=== PATIENT | female | born 1995 | race Asian ===

== ENCOUNTER 2021-05-21 09:55 | Emergency (ER) | payer BC ==
[~2021-05-21] VITALS: Ht 170.2 cm; Wt 63.0 kg
--- NOTE | 2021-05-21 09:57 | NUR ---
AAOX3, BIBRA 78 c/o hives upper torso and SOB [employer], given 0.5 EPI given in the field, BS=97MG/DL, took benadryl 50mg at home to no relief. Sinus Tach on case monitor at [id number]. ER md made aware. Awaiting md for eval.
--- NOTE | 2021-05-21 10:09 | NUR ---
DR DURAN AT THE BEDSIDE
--- NOTE | 2021-05-21 10:10 | NUR ---
[facility]) [phone] NOTIFIED PER PT REQUEST.
[2021-05-21] MEDS ORDERED: predniSONE 50 MG TABLET PO ONE (10:30)
[2021-05-21] MEDS ORDERED: FAMOTIDINE/PF INJ 20 MG/2 ML VIAL IV ONE ×2 (10:30→10:38)
[2021-05-21] MEDS ORDERED: predniSONE 20 MG TABLET ONE ×2 (10:37→10:46)
[2021-05-21] MEDS ORDERED: FAMOTIDINE (20 MG) 20 MG TABLET ONE (10:47)
--- NOTE | 2021-05-21 11:05 | NUR ---
VERBALIZED SHE'S FEELING BETTER, HIVES STILL THE SAME ACCORDING TO HER
[2021-05-21] MEDS ORDERED: diphenhydrAMINE HCL 50 MG/ML VIAL ONE (13:13)
--- NOTE | 2021-05-21 13:20 | NUR ---
IV removed. Catheter intact and site benign. Pressure and 4x4 applied to site. No bleeding noted.
[2021-05-21] MEDS ORDERED: diphenhydrAMINE HCL 50 MG/ML VIAL IV ONE (13:30)
[2021-05-21] MEDS ORDERED: EPIN0.3A4 IM (13:38)
[2021-05-21] MEDS ORDERED: FAMO-131 PO (13:38)
[2021-05-21 13:45] VITALS: BP 124/75
--- NOTE | 2021-05-21 14:00 | NUR ---
Patient discharged to home in stable condition. Written and verbal after care instructions given. Patient verbalizes understanding of instruction.
== END 2021-05-21 14:01 | disposition home or self-care (01) ==
LOC: ER 09:58
DX: T78.2XXA Anaphylactic shock, unspecified, initial encounter (principal); R21 Rash and other nonspecific skin eruption; R00.0 Tachycardia, unspecified
CPT/HCPCS: 96374; 96375; 99284; J1200; J3490; J7512